=== PATIENT | male | born 1985 | race Caucasian/White ===

== ENCOUNTER 2017-06-10 02:12 | Emergency (ER) | payer MEDICAID, OTHER ==
[~2017-06-10] VITALS: Ht 172.7 cm; Wt 81.6 kg
[~2017-06-10 02:12] MED LIST: AMPH30CA3 PO; CARI350T PO; DIAZ5TAB PO; DIVA500T2 PO; GABA800T2 PO; HYDR4TAB4 PO; LEVE500T9 PO
--- NOTE | 2017-06-10 02:25 | NUR ---
PT TO ER BED 12. PT BIB [facility], PT STATES HE HAD A SEIZURE X 6 HOURS AGO. AOX3. 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 VSS/RESP EVEN UNLABORED/NAD NOTED/SKIN WARM AND DRY/DENIES N-V-D/AOX4. AWAITING MD CRISTOBAL.
--- NOTE | 2017-06-10 03:32 | NUR ---
PT RESTING QUIETLY, AROUSES TO VOICE. RN WILL CONTINUE TO MONITOR AND PROVIDE SAFETY/COMFORT MEASURES. VSS.
--- NOTE | 2017-06-10 04:46 | NUR ---
PT RESTING QUIETLY, AROUSES TO VOICE. RN WILL CONTINUE TO MONITOR AND PROVIDE SAFETY/COMFORT MEASURES. VSS.
[2017-06-10 06:27] VITALS: BP 110/52
--- NOTE | 2017-06-10 06:28 | NUR ---
Patient given written and verbal discharge instructions. Patient verbalizes understanding of instructions. Patient is ambulatory with steady gait. Refuses offer of half-way placement. Patient given list of available shelters in surrounding area.
== END 2017-06-10 06:29 | disposition home or self-care (01) ==
LOC: ER 02:14
DX: G40.909 Epilepsy, unspecified, not intractable, without status epilepticus (principal); F17.200 Nicotine dependence, unspecified, uncomplicated; Z98.84 Bariatric surgery status; Z88.5 Allergy status to narcotic agent; Z88.6 Allergy status to analgesic agent; Z88.8 Allergy status to other drugs, medicaments and biological substances; Z90.49 Acquired absence of other specified parts of digestive tract
CPT/HCPCS: 82962; 99283; A4606; Z7610